=== PATIENT | female | born 1985 | race Caucasian/White ===

== ENCOUNTER 2018-07-23 08:00 | Outpatient (CLI) | payer MEDICAID, OTHER | END 2018-07-23 23:59 | disposition home or self-care (01) | LOC: LAB.R 08:00 | PROVIDERS: ATTEND Registered Nurse | DX: N89.8 Other specified noninflammatory disorders of vagina (principal) | CPT/HCPCS: 87491; 87591 ==

== ENCOUNTER 2019-05-17 18:27 | Emergency (ER) | payer OTHER ==
[2019-05-17] MEDS ORDERED: ONDANSETRON 4 MG/2 ML VIAL IVP STA (19:23)
[2019-05-17] MEDS ORDERED: HYDROmorphone 1 MG/ML CARPUJECT IVP STA (19:23)
[2019-05-17] MEDS ORDERED: KETOROLAC 30 MG/ML VIAL IVP STA (19:23)
[2019-05-17] MEDS ORDERED: SODIUM CHLORIDE 0.9% 1,000 ML IV ONE (19:23)
--- NOTE | 2019-05-17 19:26 | ED Physician Documentation ---
PD HPI ABD PAIN - Stated complaint Stated Complaint: BACK PX/NAUSEA - Chief complaint Chief Complaint: Abd Pain - History obtained from History obtained from: Patient - History of Present Illness Timing - onset: Today (34-year-old woman with history of conservatively manage renal colic x1 about 5 years ago while developed sudden onset right flank pain at noon today which has since migrated to the right mid abdomen. She is nauseous and has vomited. No hematuria or other urinary complaints. No fevers. No possibility of .) Review of Systems Ten Systems: 10 systems reviewed and negative Constitutional: denies: Fever, Chills Cardiac: denies: Chest pain / pressure, Palpitations Respiratory: denies: Dyspnea, Cough PD PAST MEDICAL HISTORY - Present Medications Home Medications: Ambulatory Orders Medication Instructions Recorded Confirmed Hydrocodone/Acetaminophen 1 - 2 each PO Q6H PRN #14 tablet 05/17/19 [Hydrocodon-Acetaminophen 5-325] Ibuprofen [Motrin] 800 mg PO Q8H PRN #30 tablet 05/17/19 Ondansetron Odt [Zofran] 4 mg TL Q6H PRN #10 tablet 05/17/19 Tamsulosin [Flomax] 0.4 mg PO DAILY #14 capsule 05/17/19 - Allergies Allergies/Adverse Reactions: Allergies Allergy/AdvReac Type Severity Reaction Status Date / Time No Known Drug Allergies Allergy Verified 05/17/19 18:30 - Social History Smoking Status: Never smoker PD ED PE NORMAL - Vitals Vital signs reviewed: Yes - General General: Alert and oriented X 3, Other (She appears uncomfortable) - HEENT HEENT: PERRL, EOMI - Neck Neck: Supple, no meningeal sign, No bony TTP - Cardiac Cardiac: RRR, No murmur - Respiratory Respiratory: No respiratory distress, Clear bilaterally - Abdomen Abdomen: Non tender - Back Back: Other (Tender to the right flank, not severe though, no skin changes) - Derm Derm: Normal color, Warm and dry - Extremities Extremities: No edema, No calf tenderness / cord - Neuro Neuro: Alert and oriented X 3, Normal speech Results - Vitals Vitals: Vital Signs - 24 hr 05/17/19 05/17/19 05/17/19 18:30 19:59 21:05 Temperature 36.9 C 36.5 C Heart Rate 90 78 82 Respiratory 16 18 16 Rate Blood Pressure 149/81 H 152/101 H 144/98 H O2 Saturation 100 99 99 Oxygen O2 Source Room air - Labs Labs: Laboratory Tests 05/17/19 05/17/19 05/17/19 19:34 19:34 19:34 WBC 13.0 H RBC 4.53 Hgb 14.7 Hct 42.9 MCV 94.7 MCH 32.5 H MCHC 34.3 RDW 11.8 L Plt Count 175 MPV 9.9 Neut # (Auto) 10.3 H Lymph # (Auto) 1.6 [place] # (Auto) 0.9 Eos # (Auto) 0.1 Baso # (Auto) 0.1 Absolute Nucleated RBC 0.00 Nucleated RBC % 0.0 Sodium 138 Potassium 3.7 Chloride 101 Carbon Dioxide 25 Anion Gap 12.0 BUN 24 H Creatinine 1.2 H Estimated GFR (MDRD) 51 L Glucose 98 Calcium 9.9 Total Bilirubin 0.9 AST 24 ALT 16 Alkaline Phosphatase 35 L Total Protein 7.5 Albumin 4.7 Globulin 2.8 Albumin/Globulin Ratio 1.7 Lipase 31 Serum HCG, Qual NEGATIVE Urine Color Urine Clarity Urine pH Ur Specific [place] Urine Protein Urine Glucose (UA) Urine Ketones Urine Occult Blood Urine Nitrite Urine Bilirubin Urine Urobilinogen Ur Leukocyte Esterase Urine RBC Urine WBC Ur Squamous Epith Cells Urine Bacteria Ur Microscopic Review Urine Culture Comments Urine HCG, Qual 05/17/19 20:14 WBC RBC Hgb Hct MCV MCH MCHC RDW Plt Count MPV Neut # (Auto) Lymph # (Auto) [place] # (Auto) Eos # (Auto) Baso # (Auto) Absolute Nucleated RBC Nucleated RBC % Sodium Potassium Chloride Carbon Dioxide Anion Gap BUN Creatinine Estimated GFR (MDRD) Glucose Calcium Total Bilirubin AST ALT Alkaline Phosphatase Total Protein Albumin Globulin Albumin/Globulin Ratio Lipase Serum HCG, Qual Urine Color LT. YELLOW Urine Clarity CLEAR Urine pH 7.0 Ur Specific [place] 1.010 Urine Protein NEGATIVE Urine Glucose (UA) NEGATIVE Urine Ketones TRACE Urine Occult Blood SMALL H Urine Nitrite NEGATIVE Urine Bilirubin NEGATIVE Urine Urobilinogen 0.2 (NORMAL) Ur Leukocyte Esterase NEGATIVE Urine RBC 11-25 H Urine WBC 0-3 Ur Squamous Epith Cells FEW Squamous Urine Bacteria None Seen Ur Microscopic Review INDICATED Urine Culture Comments NOT INDICATED Urine HCG, Qual NEGATIVE - Rads (name of study) CT KUB Radiology: EMP read contemporaneously (There is severe right hydronephrosis and hydroureter. There is moderate right perinephric stranding. Findings are secondary to a 0.9 x 0.6 cm stone within the low right ureter. Also bilateral nephrolithiasis) PD MEDICAL DECISION MAKING - ED course ED course: 34-year-old woman with history of renal colic presents with signs and symptoms of the same proven on CT. No evidence of pyelonephritis. Pain was easy to control after meds here. Departure - Departure Disposition: Home, Self Care Clinical Impression: Renal colic Condition: Good Record reviewed to determine appropriate education?: Yes Instructions: ED Stone Renal W Colic Prescriptions: Hydrocodone/Acetaminophen [Hydrocodon-Acetaminophen 5-325] 1 - 2 each PO Q6H PRN #14 tablet PRN Reason: pain Ibuprofen [Motrin] 800 mg PO Q8H PRN #30 tablet PRN Reason: PAIN &/OR FEVER Ondansetron Odt [Zofran] 4 mg TL Q6H PRN #10 tablet PRN Reason: Nausea / Vomiting Tamsulosin [Flomax] 0.4 mg PO DAILY #14 capsule Comments: Recommend following up with the urologist, the closest to you is at the [facility], the phone number is [phone]. Return for worsening or uncontrolled pain. Drink plenty of fluids.
[2019-05-17 19:41] LABS: BASOPHILS # (AUTO) 0.1 10^3/uL (0.0-0.1); BASOPHILS % (AUTO) 0.5 %; EOSINOPHILS # (AUTO) 0.1 10^3/uL (0.0-0.7); EOSINOPHILS % (AUTO) 0.5 %; HGB - HEMOGLOBIN 14.7 g/dL (12.0-16.0); LYMPHOCYTES # (AUTO) 1.6 10^3/uL (1.5-3.5); LYMPHOCYTES % (AUTO) 12.1 %; MEAN CORPUSCULAR HEMOGLOBIN 32.5 pg (27.0-31.0); MEAN CORPUSCULAR HGB CONC 34.3 g/dL (32.0-36.0); MEAN CORPUSCULAR VOLUME 94.7 fL (81.0-99.0); MEAN PLATELET VOLUME 9.9 fL (7.9-10.8); MONOCYTES # (AUTO) 0.9 10^3/uL (0.0-1.0); NEUTROPHILS # (AUTO) 10.3 10^3/uL (1.5-6.6); NEUTROPHILS % (AUTO) 79.4 %; PLT - PLATELET COUNT 175 10^3/uL (130-450); RED BLOOD COUNT 4.53 10^6/uL (4.20-5.40); RED CELL DISTRIBUTION WIDTH 11.8 % (12.0-15.0)
[2019-05-17 19:53] LABS: ALBUMIN 4.7 g/dL (3.2-5.5); ALBUMIN/GLOBULIN RATIO 1.7 (1.0-2.2); BILIRUBIN,TOTAL 0.9 mg/dL (0.2-1.0); CALCIUM 9.9 mg/dL (8.5-10.3); CREATININE 1.2 mg/dL (0.4-1.0); TOTAL PROTEIN 7.5 g/dL (6.7-8.2)
[2019-05-17 20:24] LABS: BILIRUBIN,URINE NEGATIVE (NEGATIVE); GLUCOSE, URINE (UA) NEGATIVE (NEGATIVE); KETONES,URINE (UA) TRACE mg/dL (NEGATIVE); LEUKOCYTE ESTERASE, URINE NEGATIVE (NEGATIVE); NITRITE,URINE NEGATIVE (NEGATIVE); OCCULT BLOOD,URINE SMALL (NEGATIVE); PROTEIN,URINE NEGATIVE (NEGATIVE); UROBILINOGEN,URINE 0.2 (NORMAL) E.U./dL (NORMAL)
[2019-05-17 20:26] LABS: CLARITY,URINE CLEAR (CLEAR); HCG UR QUAL NEGATIVE
[2019-05-17 20:27] LABS: HCG,QUALITATIVE BLOOD NEGATIVE
[2019-05-17 20:38] LABS: BACTERIA,URINE None Seen /HPF (None Seen); SQUAMOUS EPITHELIAL CELL,UR FEW Squamous (<= Few)
[2019-05-17 21:06] VITALS: BP 144/98
--- NOTE | 2019-05-17 21:15 | CT Report ---
Reason: R flank pain` Procedure Date: 05/17/2019 Accession Number: [id number] / [id number] Procedure: CT - Abdomen/Pelvis WO CPT Code: FULL RESULT: EXAM: CT ABDOMEN AND PELVIS (CT KUB) EXAM DATE: 05/17/2019 08:46 PM. CLINICAL HISTORY: R flank pain. COMPARISONS: None. TECHNIQUE: Routine axial helical CT imaging was performed through the abdomen and pelvis without IV contrast. Reconstructions: Coronal and sagittal. In accordance with CT protocol optimization, one or more of the following dose reduction techniques were utilized for this exam: automated exposure control, adjustment of mA and/or KV based on patient size, or use of iterative reconstructive technique. FINDINGS: Lung Bases: Unremarkable. Right Kidney/Ureter: There is nephrolithiasis. There is severe right hydronephrosis, hydroureter, and perinephric stranding secondary to a stone measuring up to 0.9 cm within the low right ureter. Left Kidney/Ureter: There are nonobstructing stones within the left kidney. There is no evidence of obstructing stone or hydronephrosis. Other Solid Organs: Noncontrast images of the solid organs are grossly unremarkable. Gallbladder/Bile Ducts: Unremarkable. Peritoneal Cavity: Stomach, small bowel, and colon demonstrate no acute abnormalities. There is moderate volume stool within colon. No evidence of appendicitis. There is a small amount of free fluid within the pelvis. No enlarged mesenteric or retroperitoneal lymph nodes. Pelvic Organs: Intrauterine device is in place. No bladder stones are seen. No significant adnexal abnormalities. Vasculature: Unremarkable. Other: None. IMPRESSION: There is severe right hydronephrosis and hydroureter. There is moderate right perinephric stranding. Findings are secondary to a 0.9 x 0.6 cm stone within the low right ureter. RADIA
[2019-05-17] MEDS ORDERED: HYDROcod/ACET 5/325 Prepack 4 PO STA (21:22)
[2019-05-17] MEDS ORDERED: TAMSULOSIN 0.4 MG CAPSULE PO STA (21:22)
[2019-05-17] MEDS ORDERED: ONDANSETRON ODT 4 MG Prepack 2 TL STA (21:22)
== END 2019-05-17 21:33 | disposition home or self-care (01) ==
LOC: ED 18:27
DX: N13.2 Hydronephrosis with renal and ureteral calculous obstruction (principal)
CPT/HCPCS: 36415; 74176; 80053; 81001; 81025; 83690; 84703; 85025; 96361; 96374; 99283; 99284; A9270; J1170; 81003; 87086

== ENCOUNTER 2019-08-21 11:47 | Outpatient (CLI) | payer OTHER ==
[2019-08-21 18:51] LABS: CANDIDA GROUP DNA POSITIVE (NEGATIVE); CANDIDA KRUSEI DNA NEGATIVE (NEGATIVE); TRICHOMONAS VAGINALIS DNA NEGATIVE (NEGATIVE)
== END 2019-08-21 23:59 | disposition home or self-care (01) ==
LOC: LAB.R 11:47
PROVIDERS: ATTEND Nurse Practitioner Obstetrics & Gynecology
DX: N76.0 Acute vaginitis (principal)
CPT/HCPCS: 87661; 87801

== ENCOUNTER 2020-01-24 09:13 | Outpatient (CLI) | payer OTHER ==
--- NOTE | 2020-01-24 16:05 | Ultrasound Report ---
PROCEDURE: Retroperitoneal INDICATIONS: DISORDER OF KIDNEY TECHNIQUE: Real-time scanning was performed of the retroperitoneal organs, with image documentation. COMPARISON: CT Abdomen/Pelvis 05/27/19, Ultrasound renals 09/20/13 FINDINGS: Kidneys: Kidneys are normal in size. Right kidney measures 10.9 cm long; left kidney measures 11.6 cm long. Right renal cortical thickness is 0.8 cm; left renal cortical thickness is 0.9 cm. Mild le ft hydronephrosis. It is noted left hydronephrosis has a consistent since 2013. Focus of increased ec hogenicity measuring 12 x 8 x 7 mm. Bilateral echogenic medullary pyramids. Prominent right extra r enal pelvis. Bladder Pre Void 77 cc. Post void residual 5 cm. Bilateral ureteral jets are visualized. IMPRESSION: 1. Persistent appearance of left hydronephrosis since 2013. It is not as prominent as recent hydronep hrosis identified in 2019 secondary to distal ureteral calculus. 2. Nonobstructing focus of inferior left renal pole calcification. 3. Persistent appearance of echogenic medullary appearance, suggestive of calcinosis. Reviewed by: Brandy Patten MD on 01/24/2020 4:04 PM PDT Approved by: Brandy Patten MD on 01/24/2020 4:04 PM PDT Station ID: [id number]
== END 2020-01-24 09:14 | disposition home or self-care (01) ==
LOC: DI 09:13
PROVIDERS: ATTEND Nurse Practitioner Family
DX: N13.30 Unspecified hydronephrosis (principal); N28.89 Other specified disorders of kidney and ureter
CPT/HCPCS: 76770

== ENCOUNTER 2021-06-28 10:58 | Outpatient (CLI) | payer OTHER ==
--- NOTE | 2021-06-29 08:20 | Ultrasound Report ---
LIMITED ULTRASOUND OF LEFT BREAST: 06/28/2021 CLINICAL: Palpable left breast lump. Comparison is made to exam dated: 06/28/2021 mammogram - [facility]. Ultrasound of the left breast 11 o'clock region was performed. Rodriguez scale images of the real-time ex amination were reviewed. No ultrasound abnormality corresponding to the area of palpable abnormality in the left breast was id entified. IMPRESSION: NEGATIVE There is no sonographic or mammographic evidence of malignancy. Recommend screening mammogram at the age of 38 in 2 years. If there is any interval change or if the palpable abnormality changes, recommend repeat mammogram and ultrasound. This exam was interpreted at Station ID: [id number]. Electronically Signed By: Ace George acr/:06/28/2021 13:07:18 Ultrasound BI-RADS: 1 Negative BI-RADS CATEGORY: (1) - 1 Mammogram [id number] 2 year screening LATERALITY: (B)
--- NOTE | 2021-06-29 08:20 | Mammography Report ---
BILATERAL DIGITAL DIAGNOSTIC MAMMOGRAM 3D/2D: 06/28/2021 CLINICAL: Palpable left breast lump. No prior exams were available for comparison. The tissue of both breasts is extremely dense, which l owers the sensitivity of mammography. No significant masses, calcifications, or other findings are seen in either breast. No abnormality which corresponds with the area of pain is identified. IMPRESSION: INCOMPLETE: NEEDS ADDITIONAL IMAGING EVALUATION Ultrasound is recommended. US will be performed and dictated separately. This exam was interpreted at Station ID: [id number]. NOTE: For mammograms, a report in lay terms will be sent to the patient. Approximately 15% of breast malignancies will not be visualized mammographically. In the management of a palpable breast mass, a negative mammogram must not discourage biopsy of a clinically suspicious lesion. Electronically Signed By: Ace George acr/:06/28/2021 11:57:17 ACR BI-RADS Category 0: Incomplete 3340F PARENCHYMAL PATTERN: (VD) - The breast(s) demonstrate(s) extremely dense parenchyma, limiting the sen sitivity of mammography. BI-RADS CATEGORY: (0) - 0 Ultrasound [id number] Immediate follow-up LATERALITY: (B)
== END 2021-06-28 10:59 | disposition home or self-care (01) ==
LOC: DI 10:58
PROVIDERS: ATTEND Registered Nurse
DX: N63.25 Unspecified lump in the left breast, overlapping quadrants (principal)

== ENCOUNTER 2023-12-20 10:16 | Outpatient (CLI) | payer OTHER | END 2023-12-20 23:59 | disposition EMS.NT | LOC: EMS 10:16 | DX: F41.9 Anxiety disorder, unspecified (principal) ==